=== PATIENT | female | born 1935 ===

== ENCOUNTER 2021-04-18 16:20 | Inpatient (IN) ==
[2021-04-18] MEDS ORDERED: Aspirin 81 MG TAB.CHEW PO STA (17:14)
[2021-04-18] MEDS ORDERED: Ipratropium/Albuterol Neb 3 ML IH ONE (17:14)
[2021-04-18] MEDS ORDERED: methylPREDNISolone 125 MG/2 ML VIAL IVP ONE (17:14)
[2021-04-18 17:44] LABS: Basophils % 0.7 %; Eosinophils # 0.1 K/mcL (0.0-0.6); Eosinophils % 3.2 %; Hematocrit 44.8 % (35.3-44.9); Hemoglobin 14.6 g/dL (11.5-15.4); Immature Granulocytes % 0.2 % (0-4); Lymphocytes # 1.5 K/mcL (0.6-4.6); Lymphocytes % 33.6 %; Mean Corpuscular HGB Conc 32.6 g/dL (31.6-35.5); Mean Corpuscular Hemoglobin 29.1 pg (28.0-33.3); Mean Corpuscular Volume 89.2 fL (83.0-100.0); Mean Platelet Volume 9.7 fL (9.4-12.4); Monocytes # 0.4 K/mcL (0.0-1.3); Monocytes % 8.4 %; Neutrophils # 2.4 K/mcL (1.6-8.9); Platelet Count 148 K/mcL (140-400); Red Blood Count 5.02 M/mcL (3.82-4.97); Red Cell Distribution Width 12.3 % (11.5-14.5); Segmented Neutrophils % 53.9 %; White Blood Count 4.4 K/mcL (4.3-11.1)
[2021-04-18 18:05] LABS: BUN/Creatinine Ratio 17 (6-26); Blood Urea Nitrogen 13 mg/dL (8-23); Calcium 9.7 mg/dL (8.6-10.3); Carbon Dioxide 24 mEq/L (23-29); Chloride 105 mEq/L (98-107); Glucose 114 mg/dL (70-105); Osmolality,Calculated 297 (280-300); Sodium 143 mEq/L (136-145); Troponin I < 0.03 ng/mL (< 0.04); eGFR For African Americans > 60 (> 60); eGFR For Non-African Americans > 60 (> 60)
[2021-04-18] MEDS: 0.9 % Sodium Chloride 1,000 ML IVC SCH (19:05)
[2021-04-18] MEDS ORDERED: Azithromycin 500 MG in 0.9 % Sodium Chloride 250 ML IVPB ONE (19:10)
[2021-04-18] MEDS ORDERED: Perflutren Lipid Microsphere 1.3 ML in 0.9 % Sodium Chloride 8.7 ML IVP PRN (19:45)
[2021-04-18] MEDS ORDERED: Ondansetron 4 MG/2 ML VIAL IVP PRN (19:45)
[2021-04-18] MEDS ORDERED: Naloxone 0.4 MG/ML INJ IVP PRN (19:45)
[2021-04-18] MEDS ORDERED: D5% in Water 1,000 ML IVC PRN (20:19)
[2021-04-18] MEDS ORDERED: Dextrose Gel 15 GM/37.5 ML TUBE PO PRN ×2 (20:19)
[2021-04-18] MEDS ORDERED: *HR* Dextrose 50 % in Water (Vial) 50 ML VIAL IVP PRN (20:19)
[2021-04-18] MEDS: cefTRIAXone 2,000 MG in Water for inj. (sterile) 20 ML IVP SCH (20:21)
[2021-04-18] MEDS: Ipratropium/Albuterol Neb 3 ML IH SCH (21:04)
[2021-04-18] MEDS: MethylPREDNISolone 40 MG/ML VIAL IVP SCH (23:29)
[2021-04-18] MEDS: *HR* Heparin 5,000 UNIT/ML VIAL SQ SCH (23:29)
[2021-04-19] MEDS: Ipratropium/Albuterol Neb 3 ML IH SCH ×7 (00:03→23:54)
[2021-04-19] MEDS: MethylPREDNISolone 40 MG/ML VIAL IVP SCH ×2 (04:37→13:28)
[2021-04-19] MEDS: 0.9 % Sodium Chloride 1,000 ML IVC SCH ×3 (04:38→17:06)
[2021-04-19] MEDS: *HR* Heparin 5,000 UNIT/ML VIAL SQ SCH ×3 (04:38→20:46)
[2021-04-19 06:26] LABS: Basophils % 0.2 %; Hematocrit 41.8 % (35.3-44.9); Hemoglobin 13.6 g/dL (11.5-15.4); Immature Granulocytes % 0.4 % (0-4); Lymphocytes # 0.7 K/mcL (0.6-4.6); Lymphocytes % 13.9 %; Mean Corpuscular HGB Conc 32.5 g/dL (31.6-35.5); Mean Corpuscular Hemoglobin 28.8 pg (28.0-33.3); Mean Corpuscular Volume 88.4 fL (83.0-100.0); Mean Platelet Volume 9.6 fL (9.4-12.4); Monocytes % 0.6 %; Neutrophils # 4.4 K/mcL (1.6-8.9); Platelet Count 142 K/mcL (140-400); Red Blood Count 4.73 M/mcL (3.82-4.97); Red Cell Distribution Width 12.1 % (11.5-14.5); Segmented Neutrophils % 84.9 %; White Blood Count 5.2 K/mcL (4.3-11.1)
[2021-04-19] MEDS ORDERED: Regadenoson 0.4 MG/5 ML SYRINGE IVP ONE (06:27)
[2021-04-19 06:49] LABS: BUN/Creatinine Ratio 18 (6-26); Blood Urea Nitrogen 14 mg/dL (8-23); Calcium 8.7 mg/dL (8.6-10.3); Carbon Dioxide 21 mEq/L (23-29); Chloride 109 mEq/L (98-107); Chol/HDL Ratio 4.3 (0-4.9); Cholesterol 183 mg/dL (< 200); Glucose 230 mg/dL (70-105); HDL Cholesterol 43 mg/dL (40-59); LDL Cholesterol,Calculated 109 mg/dL (< 100); Osmolality,Calculated 302 (280-300); Potassium 3.5 mEq/L (3.5-5.1); Sodium 142 mEq/L (136-145); Triglycerides 154 mg/dL (< 150); eGFR For African Americans > 60 (> 60); eGFR For Non-African Americans > 60 (> 60)
[2021-04-19] MEDS ORDERED: *HR* Metoprolol 5 MG/5 ML VIAL IVP ONE (09:05)
[2021-04-19] MEDS: Insulin LISPRO 300 UNITS/3 ML VIAL SUBQ SCH ×3 (09:09→17:08)
[2021-04-19] MEDS: Azithromycin 500 MG in 0.9 % Sodium Chloride 250 ML IVPB SCH (09:17)
[2021-04-19] MEDS: Patient Taking Own Medication 1 EACH OP SCH (14:55)
[2021-04-19] MEDS: Gabapentin 100 MG CAPSULE PO SCH ×2 (17:05→20:43)
[2021-04-19] MEDS: cefTRIAXone 2,000 MG in Water for inj. (sterile) 20 ML IVP SCH (20:45)
[2021-04-19] MEDS: Famotidine 20 MG TABLET PO SCH (20:46)
[2021-04-19] MEDS ORDERED: Mirtazapine 15 MG TABLET PO SCH (21:00)
[2021-04-20] MEDS: Patient Taking Own Medication 1 EACH OP SCH (01:16)
[2021-04-20] MEDS: 0.9 % Sodium Chloride 1,000 ML IVC SCH (03:35)
[2021-04-20] MEDS: Ipratropium/Albuterol Neb 3 ML IH SCH ×2 (04:10→07:18)
[2021-04-20 06:01] LABS: Basophils % 0.1 %; Hematocrit 35.9 % (35.3-44.9); Hemoglobin 12.2 g/dL (11.5-15.4); Immature Granulocytes % 0.3 % (0-4); Lymphocytes # 1.1 K/mcL (0.6-4.6); Lymphocytes % 16.6 %; Mean Corpuscular Hemoglobin 30.1 pg (28.0-33.3); Mean Corpuscular Volume 88.6 fL (83.0-100.0); Mean Platelet Volume 9.6 fL (9.4-12.4); Monocytes # 0.4 K/mcL (0.0-1.3); Monocytes % 6.1 %; Neutrophils # 5.2 K/mcL (1.6-8.9); Platelet Count 127 K/mcL (140-400); Red Blood Count 4.05 M/mcL (3.82-4.97); Red Cell Distribution Width 12.4 % (11.5-14.5); Segmented Neutrophils % 76.9 %; White Blood Count 6.7 K/mcL (4.3-11.1)
[2021-04-20] MEDS: *HR* Heparin 5,000 UNIT/ML VIAL SQ SCH (06:02)
[2021-04-20 06:17] LABS: BUN/Creatinine Ratio 20 (6-26); Blood Urea Nitrogen 14 mg/dL (8-23); Calcium 8.3 mg/dL (8.6-10.3); Carbon Dioxide 21 mEq/L (23-29); Chloride 113 mEq/L (98-107); Glucose 139 mg/dL (70-105); Osmolality,Calculated 299 (280-300); Potassium 3.3 mEq/L (3.5-5.1); Sodium 143 mEq/L (136-145); eGFR For African Americans > 60 (> 60); eGFR For Non-African Americans > 60 (> 60)
[2021-04-20] MEDS ORDERED: Azithromycin 500 MG VIAL ONE (07:55)
[2021-04-20 08:20] VITALS: BP 157/70
[2021-04-20] MEDS: Famotidine 20 MG TABLET PO SCH (08:33)
[2021-04-20] MEDS: Gabapentin 100 MG CAPSULE PO SCH (08:33)
[2021-04-20] MEDS: Insulin LISPRO 300 UNITS/3 ML VIAL SUBQ SCH (08:34)
[2021-04-20] MEDS: Azithromycin 500 MG in 0.9 % Sodium Chloride 250 ML IVPB SCH (08:36)
[2021-04-20] MEDS ORDERED: predniSONE 20 MG TABLET PO SCH (09:00)
[2021-04-20] MEDS ORDERED: Multivit/Ca/Min/Fe/FA 1 TAB TABLET PO SCH (09:00)
[2021-04-20] MEDS ORDERED: Aspirin Enteric Coated 81 MG Tablet PO SCH (09:00)
== END 2021-04-20 10:31 | disposition home or self-care (01) | DRG 192 ==
LOC: 3BNU 16:20 → EMEROOARM 16:20 → SUATTDRO 20:27 → 3BNU 20:55
PROVIDERS: ADMIT Internal Medicine; ATTEND Family Medicine

== ENCOUNTER 2021-05-02 00:16 | Inpatient (IN) ==
[2021-05-02] MEDS ORDERED: *HR* FentaNYL (PF) 100 MCG/2 ML VIAL IVP ONE (01:50)
[2021-05-02] MEDS ORDERED: 0.9 % Sodium Chloride 1,000 ML IVC ONE ×2 (01:50→07:16)
[2021-05-02] MEDS ORDERED: Isovue-370 500 ML BOTTLE IVP ONE (01:54)
[2021-05-02 02:30] LABS: Basophils % 0.2 %; Eosinophils % 0.2 %; Lymphocytes % 4.5 %
[2021-05-02 02:31] LABS: Basophils # 0.1 K/mcL (0.0-0.2); Eosinophils # 0.1 K/mcL (0.0-0.6); Hematocrit 44.5 % (35.3-44.9); Hemoglobin 15.1 g/dL (11.5-15.4); Immature Granulocytes % 0.7 % (0-4); Lymphocytes # 1.1 K/mcL (0.6-4.6); Mean Corpuscular HGB Conc 33.9 g/dL (31.6-35.5); Mean Corpuscular Hemoglobin 30.1 pg (28.0-33.3); Mean Corpuscular Volume 88.8 fL (83.0-100.0); Mean Platelet Volume 9.9 fL (9.4-12.4); Monocytes % 3.8 %; Neutrophils # 22.4 K/mcL (1.6-8.9); Platelet Count 173 K/mcL (140-400); Red Blood Count 5.01 M/mcL (3.82-4.97); Segmented Neutrophils % 90.6 %; White Blood Count 24.7 K/mcL (4.3-11.1)
[2021-05-02 02:34] LABS: Monocytes # 0.9 K/mcL (0.0-1.3)
[2021-05-02 02:44] LABS: Alanine Aminotransferase 7 Units/L (7-52); Albumin 4.1 g/dL (3.5-5.7); Albumin/Globulin Ratio 1.4 (1.1-2.2); Alkaline Phosphatase 59 Units/L (34-104); Aspartate Amino Transferase 16 Units/L (13-39); BUN/Creatinine Ratio 23 (6-26); Bilirubin,Total 0.4 mg/dL (0.3-1.0); Blood Urea Nitrogen 18 mg/dL (8-23); Calcium 9.1 mg/dL (8.6-10.3); Carbon Dioxide 19 mEq/L (23-29); Chloride 103 mEq/L (98-107); Globulin 2.9 g/dL (2.4-3.5); Glucose 220 mg/dL (70-105); Lipase 75 Units/L (11-82); Osmolality,Calculated 291 (280-300); Potassium 3.5 mEq/L (3.5-5.1); Sodium 136 mEq/L (136-145); Troponin I < 0.03 ng/mL (< 0.04); eGFR For African Americans > 60 (> 60); eGFR For Non-African Americans > 60 (> 60)
[2021-05-02] MEDS ORDERED: *HR* HYDROmorphone (PF) 1 MG/ML SYRINGE IVP ONE ×2 (05:25→06:03)
[2021-05-02] MEDS ORDERED: Piperacillin/Tazobactam 3.375 GM in Water for inj. (sterile) 20 ML IVP ONE (05:49)
[2021-05-02 06:31] LABS: INR 0.9; Prothrombin Time 10.7 Seconds (9.4-12.1)
[2021-05-02 06:51] LABS: Bilirubin,Urine Negative (Negative); Blood,Urine Moderate (Negative); Clarity,Urine Clear (Clear); Color,Urine Colorless (Yellow); Glucose,Urine (UA) >=1000 mg/dL (Normal); Ketones,Urine Trace mg/dL (Negative); Leukocyte Esterase,Urine Negative (Negative); Nitrite,Urine Negative (Negative); Protein,Urine Negative (Neg-Trace); RBC,Urine 15-30 per hpf (0-3); Specific Gravity,Urine 1.021 (1.010-1.025); Urobilinogen,Urine Normal (Normal); WBC,Urine 0-3 per hpf (0-3)
[2021-05-02] MEDS ORDERED: Milk and Molasses Enema 200 ML RC ONE (07:57)
[2021-05-02] MEDS ORDERED: Ondansetron 4 MG/2 ML VIAL IVP PRN (08:00)
[2021-05-02] MEDS ORDERED: Melatonin 3 MG TABLET PO PRN (08:00)
[2021-05-02] MEDS ORDERED: Dextrose Gel 15 GM/37.5 ML TUBE PO PRN ×2 (08:00)
[2021-05-02] MEDS ORDERED: D5% in Water 1,000 ML IVC PRN (08:00)
[2021-05-02] MEDS ORDERED: *HR* Dextrose 50 % in Water (Vial) 50 ML VIAL IVP PRN (08:00)
[2021-05-02] MEDS ORDERED: Naloxone 0.4 MG/ML INJ IVP PRN (08:00)
[2021-05-02 08:40] LABS: VBG HCO3 24 mEq/L (21-27); VBG PCO2 47 mmHg (41-51); VBG PH 7.33 pH Units (7.32-7.42); VBG PO2 67 mmHg (25-50)
[2021-05-02] MEDS: Piperacillin/Tazobactam 3.375 GM in 0.9 % Sodium Chloride Mini Bag 100 ML IVPB SCH ×2 (13:39→21:05)
[2021-05-02] MEDS: Gabapentin 100 MG CAPSULE PO SCH ×2 (13:39→21:03)
[2021-05-02] MEDS: Sennosides/Docusate Sodium TABLET PO SCH ×2 (13:39→21:02)
[2021-05-02] MEDS: polyethylene glycoL 3350 17 GM POWD.PACK PO SCH ×2 (13:39→21:09)
[2021-05-02] MEDS: Insulin LISPRO 300 UNITS/3 ML VIAL SUBQ SCH ×2 (13:41→16:29)
[2021-05-02] MEDS: Acetaminophen 325 MG TABLET PO PRN (16:12)
[2021-05-02] MEDS ORDERED: Famotidine 20 MG TABLET PO SCH (21:00)
[2021-05-02] MEDS: Famotidine 20 MG TABLET PO SCH (21:03)
[2021-05-02] MEDS: Mirtazapine 15 MG TABLET PO SCH (21:03)
[2021-05-03] MEDS: Piperacillin/Tazobactam 3.375 GM in 0.9 % Sodium Chloride Mini Bag 100 ML IVPB SCH ×3 (03:54→21:02)
[2021-05-03 05:16] LABS: Hematocrit 40.9 % (35.3-44.9); Hemoglobin 13.6 g/dL (11.5-15.4); Mean Corpuscular HGB Conc 33.3 g/dL (31.6-35.5); Mean Corpuscular Hemoglobin 29.5 pg (28.0-33.3); Mean Corpuscular Volume 88.7 fL (83.0-100.0); Mean Platelet Volume 9.4 fL (9.4-12.4); Platelet Count 160 K/mcL (140-400); Red Blood Count 4.61 M/mcL (3.82-4.97); Red Cell Distribution Width 12.4 % (11.5-14.5)
[2021-05-03 05:17] LABS: White Blood Count 10.2 K/mcL (4.3-11.1)
[2021-05-03 05:37] LABS: BUN/Creatinine Ratio 16 (6-26); Blood Urea Nitrogen 11 mg/dL (8-23); Calcium 8.8 mg/dL (8.6-10.3); Carbon Dioxide 24 mEq/L (23-29); Chloride 111 mEq/L (98-107); Glucose 185 mg/dL (70-105); Osmolality,Calculated 298 (280-300); Phosphorous 2.1 mg/dL (2.7-4.5); Sodium 142 mEq/L (136-145); eGFR For African Americans > 60 (> 60); eGFR For Non-African Americans > 60 (> 60)
[2021-05-03] MEDS: *HR* Enoxaparin 40 MG/0.4 ML SYRINGE SQ SCH (06:22)
[2021-05-03] MEDS: polyethylene glycoL 3350 17 GM POWD.PACK PO SCH ×2 (08:45→21:03)
[2021-05-03] MEDS: Gabapentin 100 MG CAPSULE PO SCH ×3 (08:45→21:05)
[2021-05-03] MEDS: Insulin LISPRO 300 UNITS/3 ML VIAL SUBQ SCH ×3 (08:45→17:25)
[2021-05-03] MEDS: Sennosides/Docusate Sodium TABLET PO SCH ×2 (08:45→21:06)
[2021-05-03] MEDS: Aspirin Enteric Coated 81 MG Tablet PO SCH (08:45)
[2021-05-03] MEDS: Famotidine 20 MG TABLET PO SCH ×2 (08:45→21:04)
[2021-05-03] MEDS: 0.9 % Sodium Chloride 1,000 ML IVC SCH (09:52)
[2021-05-03] MEDS: Acetaminophen 325 MG TABLET PO PRN (11:29)
[2021-05-03] MEDS: Mirtazapine 15 MG TABLET PO SCH (21:04)
[2021-05-04] MEDS: 0.9 % Sodium Chloride 1,000 ML IVC SCH (01:03)
[2021-05-04 02:31] LABS: Basophils # 0.1 K/mcL (0.0-0.2); Basophils % 0.9 %; Eosinophils # 0.2 K/mcL (0.0-0.6); Eosinophils % 3.5 %; Hematocrit 40.2 % (35.3-44.9); Immature Granulocytes % 0.3 % (0-4); Lymphocytes # 1.6 K/mcL (0.6-4.6); Lymphocytes % 23.3 %; Mean Corpuscular HGB Conc 32.3 g/dL (31.6-35.5); Mean Corpuscular Hemoglobin 29.1 pg (28.0-33.3); Mean Corpuscular Volume 90.1 fL (83.0-100.0); Mean Platelet Volume 9.6 fL (9.4-12.4); Monocytes # 0.6 K/mcL (0.0-1.3); Monocytes % 8.1 %; Neutrophils # 4.3 K/mcL (1.6-8.9); Platelet Count 153 K/mcL (140-400); Red Blood Count 4.46 M/mcL (3.82-4.97); Red Cell Distribution Width 12.3 % (11.5-14.5); Segmented Neutrophils % 63.9 %; White Blood Count 6.8 K/mcL (4.3-11.1)
[2021-05-04 02:50] LABS: BUN/Creatinine Ratio 21 (6-26); Blood Urea Nitrogen 13 mg/dL (8-23); Calcium 8.6 mg/dL (8.6-10.3); Carbon Dioxide 23 mEq/L (23-29); Chloride 111 mEq/L (98-107); Glucose 145 mg/dL (70-105); Osmolality,Calculated 297 (280-300); Potassium 3.8 mEq/L (3.5-5.1); Sodium 142 mEq/L (136-145); eGFR For African Americans > 60 (> 60); eGFR For Non-African Americans > 60 (> 60)
[2021-05-04] MEDS: Piperacillin/Tazobactam 3.375 GM in 0.9 % Sodium Chloride Mini Bag 100 ML IVPB SCH (05:21)
[2021-05-04] MEDS: *HR* Enoxaparin 40 MG/0.4 ML SYRINGE SQ SCH (05:23)
[2021-05-04 05:42] VITALS: O2SAT 97
[2021-05-04] MEDS: Famotidine 20 MG TABLET PO SCH (08:32)
[2021-05-04] MEDS: Aspirin Enteric Coated 81 MG Tablet PO SCH (08:34)
[2021-05-04] MEDS: Insulin LISPRO 300 UNITS/3 ML VIAL SUBQ SCH ×2 (08:34→11:34)
[2021-05-04] MEDS: Gabapentin 100 MG CAPSULE PO SCH (08:34)
[2021-05-04] MEDS: polyethylene glycoL 3350 17 GM POWD.PACK PO SCH (08:35)
[2021-05-04] MEDS: Sennosides/Docusate Sodium TABLET PO SCH (08:37)
[2021-05-04] MEDS ORDERED: Milk and Molasses Enema 200 ML RC ONE (08:44)
[2021-05-04 11:29] VITALS: BP 152/81; PULSE 78; TEMP 97.8
== END 2021-05-04 12:37 | disposition home or self-care (01) | DRG 871 ==
LOC: EMEROOARM 00:16 → CDU 00:16 → SUATTDRO 06:42 → CDU 08:10 → 2ANU 15:56
PROVIDERS: ADMIT Internal Medicine; ATTEND Internal Medicine